=== PATIENT | female | born 1995 | race Caucasian/White ===

== ENCOUNTER → 2023-01-06 | Outpatient (CLI) | payer BC, SELFPAY ==
[2023-01-06 16:52] LABS: Hematocrit 42.9 % (37-47); Hemoglobin 14.6 g/dL (12.0-15.0); Mean Corpuscular Volume 94.1 fL (81-99); Mean Platelet Vol. 10.1 fl (6.2-12.0); Platelet Count 260 K/mm3 (150-450); RBC Distribution Width CV 11.8 % (11.6-14.6); RBC Distribution Width SD 40.8 fl (35.1-43.9); Red Blood Count 4.56 M/mm3 (4.2-5.4); White Blood Count 4.1 K/mm3 (4.4-11.0)
[2023-01-06 17:05] LABS: Erythrocyte Sedimentation Rate 4 mm/hr (0-30)
[2023-01-06 17:08] LABS: Vitamin B12 653 pg/mL (211-911)
[2023-01-06 17:15] LABS: ALB/GLOB Ratio 1.2 RATIO (0.9-2.4); AST(SGOT) 26 U/L (15-37); Alanine Aminotransfer ALT/SGPT 36 U/L (13-56); Albumin, Serum 4.1 g/dL (3.2-5.0); Alkaline Phosphatase 73 U/L (45-117); Anion Gap 6 (5-15); BUN 9 mg/dL (7-18); Calcium,Total 8.7 mg/dL (8.5-10.1); Chloride 107 mmol/L (98-107); Creatinine, Serum 0.64 mg/dL (0.55-1.02); EST Glomerular Filtration Rate 116 mL/min (>60); Est Glom Filt Rate - Afr Amer 140 mL/min (>60); Ferritin 42 ng/mL (8-252); Free T3 2.4 pg/mL (2.18-3.98); Globulin 3.5 g/dL (2.2-4.2); Glucose 90 mg/dL (74-106); Iron 31 ug/dL (50-170); Potassium 3.8 mmol/L (3.5-5.1); Protein, Total 7.6 g/dL (6.4-8.2); Sodium Level 139 mmol/L (136-145); T4 Free Direct 0.98 ng/dL (0.76-1.46); Thyroid Stim Hormone (TSH) 1.78 uIU/mL (0.358-3.74)
== END | disposition home or self-care (01) ==
LOC: LAB 16:31 → LABSPEC 16:36
PROVIDERS: Visit Provider Nurse Practitioner Family
DX: A69.20 Lyme disease, unspecified (principal); R53.82 Chronic fatigue, unspecified; R06.02 Shortness of breath; G89.29 Other chronic pain; R53.1 Weakness; H93.01 Transient ischemic deafness; R11.0 Nausea; R10.9 Unspecified abdominal pain
CPT/HCPCS: 80053; 82306; 82607; 82728; 83540; 84439; 84443; 84481; 85027; 85652; 86140

== ENCOUNTER → 2023-02-03 | Outpatient (CLI) | payer BC, SELFPAY ==
[2023-02-07 16:09] LABS: G6PD Quant Test 267 (155-399); Red Blood Cell Count Test/G6PD 4.43 x10E6/uL (3.77-5.28)
== END | disposition home or self-care (01) ==
LOC: LABSPEC 02-04 13:26
PROVIDERS: Visit Provider Nurse Practitioner Family
DX: B60.09 Other babesiosis (principal)
CPT/HCPCS: 82955

== ENCOUNTER → 2024-04-01 14:52 | Outpatient (REF) | payer BC, SELFPAY | LOC: LABSPEC 14:52 | PROVIDERS: Referring Provider Nurse Practitioner Family; Visit Provider Nurse Practitioner Family | DX: N39.0 Urinary tract infection, site not specified (principal) | CPT/HCPCS: 87086; 87088 ==